=== PATIENT | female | born 1945 | race Caucasian/White ===

== ENCOUNTER 2016-08-25 07:26 | Day surgery (SDC) | payer MEDICARE, OTHER ==
--- NOTE | ~2016-08-25 | EGD ---
EGD REPORT [facility] [address] [address] NAME: VIKI ROLLINS : [birth year] STATUS : REG [facility]#: [id number] AGE: 70 ADM/REG DATE : 08/25/16 MR#: [id number] REPORT SERV DATE: 08/25/16 DICTATED BY: ESHA LAKHANI DATE: 08/25/16 REPORT STATUS : Draft TRANSCRIBED BY: [facility] DATE: 08/25/16 Endoscopy Center Patient Name: Viki Rollins Date of : 1945 Attending MD: ESHA LAKHANI MD Procedure Date No Time: 08/25/2016 Procedure: Upper GI endoscopy Indications: Dyspepsia, Esophageal reflux Referring MD: MAURY VYAS MD Medicines: Monitored Anesthesia Care Complications: No immediate complications. Procedure: Pre-Anesthesia Assessment: - ASA Grade Assessment: III - A patient with severe systemic disease. After obtaining informed consent, the endoscope was passed under direct vision. Throughout the procedure, the patient's blood pressure, pulse, and oxygen saturations were monitored continuously. The GIF [id number] was introduced through the mouth, and advanced to the second part of duodenum. The upper GI endoscopy was accomplished without difficulty. The patient tolerated the procedure well. Findings: The examined esophagus was normal. Localized mildly erythematous mucosa without bleeding was found in the gastric antrum. Biopsies were taken with a cold forceps for histology. The cardia and gastric fundus were normal on retroflexion. The duodenal bulb and 2nd part of the duodenum were normal. Impression: - Normal esophagus. - Erythematous mucosa in the antrum. Biopsied. - Normal duodenal bulb and 2nd part of the duodenum. Recommendation: - Await pathology results. - Follow an antireflux regimen. - Discontinue Prilosec (omeprazole). - Use Protonix (pantoprazole) 40 mg PO daily. Procedure Code(s): --- Professional --- 68880, Esophagogastroduodenoscopy, flexible, transoral; with biopsy, single or multiple Diagnosis Code(s): --- Professional --- K31.9, Disease of stomach and duodenum, unspecified EGD REPORT [address] [place]. [address] NAME: VIKI ROLLINS : [birth year] STATUS : [place] [facility] [place]#: [id number] AGE: 70 ADM/REG DATE : 08/25/16 MR#: [id number] REPORT SERV DATE: 08/25/16 DICTATED BY: ESHA LAKHANI DATE: 08/25/16 REPORT STATUS : Draft TRANSCRIBED BY: [employer] DATE: 08/25/16 K30, Functional dyspepsia K21.9, Gastro-esophageal reflux disease without esophagitis CPT copyright 2013 [employer]. All rights reserved. The codes documented in this report are preliminary and upon county director review may be revised to meet current compliance requirements. ESHA LAKHANI MD 08/25/2016 9:31 AM This report has been signed electronically. Number of Addenda: 0 Note Initiated On: 08/25/2016 9:17 AM Scope Withdrawal Time 0 hours 0 minutes [address] [place], [place] [address] [address]
--- NOTE | ~2016-08-25 | EGD ---
EGD REPORT [facility] [address] [address] NAME: VIKI ROLLINS : [birth year] STATUS : REG [facility]#: [id number] AGE: 70 ADM/REG DATE : 08/25/16 MR#: [id number] REPORT SERV DATE: 08/25/16 DICTATED BY: ESHA LAKHANI DATE: 08/25/16 REPORT STATUS : Draft [facility]ANS[facility]IBED [facility]: [facility] DATE: 08/25/16 Endoscopy Center Patient Name: Viki Rollins Date of : 1945 Attending MD: ESHA LAKHANI MD Procedure Date No Time: 08/25/2016 Procedure: Colonoscopy Indications: Change in bowel habits Referring MD: MAURY VYAS MD Medicines: Monitored Anesthesia Care Complications: No immediate complications. Procedure: Pre-Anesthesia Assessment: - ASA Grade Assessment: III - A patient with severe systemic disease. After I obtained informed consent, the scope was passed under direct vision. Throughout the procedure, the patient's blood pressure, pulse, and oxygen saturations were monitored continuously. The PCF [id number] was introduced through the anus and advanced to the cecum, identified by appendiceal orifice and ileocecal valve. The colonoscopy was performed without difficulty. The patient tolerated the procedure well. The quality of the bowel preparation was adequate. Findings: The digital rectal exam was normal. Pertinent negatives include no palpable rectal lesions. The terminal ileum appeared normal. Two sessile polyps were found in the ascending colon. The polyps were 5 to 7 mm in size. These polyps were removed with a cold snare. Resection and retrieval were complete. Three sessile polyps were found in the transverse colon. The polyps were 3 to 5 mm in size. These polyps were removed with a cold biopsy forceps. Resection and retrieval were complete. Two sessile polyps were found in the descending colon. The polyps were 5 to 7 mm in size. These polyps were removed with a cold biopsy forceps. Resection and retrieval were complete. Hemorrhoids were found during retroflexion and were mild. Impression: - The examined portion of the ileum was normal. - Two 5 to 7 mm polyps in the ascending colon. Resected and retrieved. - Three 3 to 5 mm polyps in the transverse colon. Resected and retrieved. - Two 5 to 7 mm polyps in the descending colon. Resected EGD REPORT [address] [place]. [address] NAME: VIKI ROLLINS : 41 STATUS : REG [facility] PAT#: [id number] AGE: 70 ADM/REG DATE : 08/25/16 MR#: [id number] REPORT SERV DATE: 08/25/16 DICTATED BY: ESHA LAKHANI DATE: 08/25/16 REPORT STATUS : Draft TRANSCRIBED BY: [email or web address] DATE: 08/25/16 and retrieved. - Hemorrhoids. Recommendation: - Patient has a contact number available for emergencies. The signs and symptoms of potential delayed complications were discussed with the patient. Return to normal activities tomorrow. Written discharge instructions were provided to the patient. - Regular diet. - Continue present medications. - Await pathology results. - Repeat colonoscopy in 3 years for surveillance based on pathology results. - Return to GI clinic in 4 weeks. Procedure Code(s): --- Professional --- 54602, Colonoscopy, flexible, proximal to splenic flexure; with removal of tumor(s), polyp(s), or other lesion(s) by snare technique 54130, 59, Colonoscopy, flexible, proximal to splenic flexure; with biopsy, single or multiple Diagnosis Code(s): --- Professional --- K64.9, Unspecified hemorrhoids D12.4, Benign neoplasm of descending colon D12.3, Benign neoplasm of transverse colon D12.2, Benign neoplasm of ascending colon R19.4, Change in bowel habit CPT copyright 2013 [employer]. All rights reserved. The codes documented in this report are preliminary and upon hydroelectric production technician review may be revised to meet current compliance requirements. ESHA LAKHANI MD 08/25/2016 9:56 AM This report has been signed electronically. Number of Addenda: 0 Note Initiated On: 08/25/2016 9:11 AM Scope Withdrawal Time 0 hours 15 minutes 46 seconds [id number] [id number]
[~2016-08-25 07:26] MED LIST: ADVAIR250 INH; ASAB PO; ATV.5 PO; CO Q-10100 MG PO; COSAMIN DS1 TAB PO; CYANO1000T PO; EFFEXOR XR150 MG PO; FESO4 PO; FISH-EPA1000 MG PO; FLONASE NAS; GLUCCHONDR PO; HARD NAILS PO; HYZAAR 50/12.51 TAB PO; HYZAAR1 TAB PO; IMITREX50 PO; KLONO1 PO; KLONO5 PO; LEXAPRO10 PO; LEXAPRO20 PO; LIPITOR10 PO; MAXALT10 MG PO; MCZ25 PO; MEVACOR PO; MIRAPEX1 MG PO; MULTIPLE VIT PO; NASONEX NAS; NEUR100 PO; NEUR300 PO; NEUR600 PO; NEXIUM40 PO; NORCO1 TA1 PO; NYS500UDL PO; OMNICEF300 PO; PCET PO; PR25 PO; PRILO PO; PRILOSEC40 MG PO; PROBBIOTIC PO; PROBIOTIC PO; RITALIN20 PO; SENOKOTS PO; SINGULAIR1 PO; SUPER B-100 OR; SYMBICORT 160/41 INH INH; TOVIAZ4 MG PO; V2 PO; VENTOLIN HFA INH; VITA D PO; VITA10 PO; VITAMIN A PO; VITAMIN B-12 PO; VITAMIN D31000 UNIT PO; VITAMIN E PO; VITC500 PO; VITE PO; ZANTAC300 MG PO; ZITH250 PO; ZYRTEC ALLGY10 MG PO; [UNRECOGNIZED DRUG - OTHER] PO; [UNRECOGNIZED DRUG - OTHER] PO; [UNRECOGNIZED DRUG - REMARK] SC
== END 2016-08-25 23:59 | disposition home or self-care (01) ==
LOC: DMU 07:26
PROVIDERS: Internal Medicine Gastroenterology
PROC: 0DBL8ZZ Excision of Transverse Colon, Via Natural or Artificial Opening Endoscopic (ICD-10-PCS; 2016-08-25)
PROC: 0DB68ZX Excision of Stomach, Via Natural or Artificial Opening Endoscopic, Diagnostic (ICD-10-PCS; principal; 2016-08-25 09:00)
PROC: 0DBK8ZZ Excision of Ascending Colon, Via Natural or Artificial Opening Endoscopic (ICD-10-PCS; 2016-08-25 09:00)
PROC: 0DBM8ZZ Excision of Descending Colon, Via Natural or Artificial Opening Endoscopic (ICD-10-PCS; 2016-08-25 09:00)
DX: D12.2 Benign neoplasm of ascending colon (principal); K63.5 Polyp of colon; K21.9 Gastro-esophageal reflux disease without esophagitis; K64.9 Unspecified hemorrhoids; J45.909 Unspecified asthma, uncomplicated; G47.419 Narcolepsy without cataplexy; G47.33 Obstructive sleep apnea (adult) (pediatric); H91.92 Unspecified hearing loss, left ear; H81.09 Meniere's disease, unspecified ear; M21.372 Foot drop, left foot; Z98.1 Arthrodesis status; Z88.5 Allergy status to narcotic agent; Z79.51 Long term (current) use of inhaled steroids; Z79.899 Other long term (current) drug therapy
CPT/HCPCS: 88305